=== PATIENT | male | born 1970 | race Caucasian/White ===

== ENCOUNTER → 2017-07-11 | Outpatient (CLI) | payer OTHER ==
[2015-12-15 07:49] VITALS: BP 121/56
[~2017-07-11] MED LIST: LISI10TA2 PO
--- NOTE | 2017-07-11 11:56 | KCIC ---
Left shoulder radiograph July 11, 2017 INDICATION: One-year history of weakness COMPARISON: None available TECHNIQUE: 3 views of the left shoulder are provided. FINDINGS: There is no acute fracture or dislocation. Bone mineralization is within normal limits. Joint spaces are maintained. Regional soft tissues are within normal limits. There is no soft tissue gas or osseous erosion. IMPRESSION: No acute fracture or dislocation. Electronically signed by: Alison Branch MD (07/11/2017 11:53 AM) [id number]
== END | disposition home or self-care (01) ==
LOC: KCIC 09:32
PROVIDERS: ATTEND Physician Assistant
DX: M25.512 Pain in left shoulder (principal); R53.1 Weakness
CPT/HCPCS: 73030

== ENCOUNTER → 2017-07-24 | Outpatient (CLI) | payer OTHER ==
[2015-12-15 07:49] VITALS: BP 121/56
--- NOTE | 2017-07-24 10:16 | KCIC ---
MR of the left shoulder Indication: Left shoulder pain. Repetitive use for 20 years. Technique: Standard multiplanar sequences are obtained. Findings: Acromioclavicular joint: Mildly degenerative. Rotator cuff: Mild thickening and signal compatible with tendinosis. No significant subdeltoid bursal fluid. Glenohumeral cartilage: No acute defect or advanced DJD. Fluid: No significant joint effusion. Labrum: Subtle signal at the base of the posterior labrum compatible with a small tear. Biceps tendon: Intact Bones: No lesion or acute fracture. Soft tissue: No acute findings. Impression: 1. Rotator cuff tendinosis without evidence of a tear. 2. Findings compatible with a small posterior labral tear. Electronically signed by: Irvin Montes MD (07/24/2017 10:13 AM) [id number]
== END | disposition home or self-care (01) ==
LOC: KCIC MRI 09:07
PROVIDERS: ATTEND Physician Assistant
DX: S43.402A Unspecified sprain of left shoulder joint, initial encounter (principal); X58.XXXA Exposure to other specified factors, initial encounter; Y93.89 Activity, other specified; Y92.89 Other specified places as the place of occurrence of the external cause; Y99.8 Other external cause status
CPT/HCPCS: 73221